=== PATIENT | female | born 1970 | race American Indian/Alaskan Native ===

== ENCOUNTER 2018-01-12 10:32 | Outpatient (CLI) | payer OTHER ==
--- NOTE | 2018-01-12 13:36 | XRay Report ---
Lumbar spine: Back and lower leg pain. The exam is compromised by the patient's size and diminished penetration for good bone detail. There are traction spurs at multiple levels. These are most severe in the lower thoracic and thoracolumbar level of T12-L1. The vertebral height and alignment appear preserved as are the interspaces. The bones are well-mineralized. Impression: Degenerative spondylosis. No acute findings suspected.
== END 2018-01-12 10:33 | disposition home or self-care (01) ==
LOC: XRAY 10:32
PROVIDERS: ATTEND Internal Medicine
DX: M47.896 Other spondylosis, lumbar region (principal); E11.9 Type 2 diabetes mellitus without complications
CPT/HCPCS: 72100